=== PATIENT | male | born 1950 | race Caucasian/White ===

== ENCOUNTER → 2020-07-01 17:45 | Outpatient (BNVA) | payer MEDICARE, SELFPAY | PROVIDERS: Family Provider Family Medicine; Visit Provider Dermatology | DX: D48.9 Neoplasm of uncertain behavior, unspecified (principal) | CPT/HCPCS: 88304 ==

== ENCOUNTER → 2020-09-29 15:46 | Outpatient (BNVA) | payer MEDICARE, SELFPAY | PROVIDERS: PCP Family Medicine; Referring Provider Family Medicine; Visit Provider Urology | DX: N13.9 Obstructive and reflux uropathy, unspecified (principal); N40.1 Benign prostatic hyperplasia with lower urinary tract symptoms; R33.9 Retention of urine, unspecified | CPT/HCPCS: 81003 ==

== ENCOUNTER 2020-11-10 13:02 | Outpatient (CLI) | payer MEDICARE, SELFPAY ==
--- NOTE | 2020-11-10 12:45 | US_ITS ---
WS: [id number] ULTRASOUND BLADDER CLINICAL INFORMATION: URINARY RETENTION COMPARISON: None. FINDINGS: Urinary bladder: The urinary bladder is morphologically normal. No free fluid is seen in the pelvis. Bladder volume Prevoid bladder: 17.6 cm x 15.4 cm x 11.1 cm; estimated volume 1577 ml. Postvoid bladder: 15.6 cm x 16.0 cm x 11.8 cm; estimated volume 1535 ml. Enlarged nodular prostate measuring 4.7 x 3.4 x 4.5 cm US/US bladder [id number] IMPRESSION: 1. Significant Post void residual 1535 cc with little emptying. 2. Enlarged nodular prostate.
== END 2020-11-10 13:03 | disposition home or self-care (01) ==
LOC: US 13:05
PROVIDERS: PCP Family Medicine; Visit Provider Urology
DX: R33.9 Retention of urine, unspecified (principal); N40.0 Benign prostatic hyperplasia without lower urinary tract symptoms
CPT/HCPCS: 76857

== ENCOUNTER → 2021-08-09 08:57 | Outpatient (BNVA) | payer MEDICARE, SELFPAY | PROVIDERS: PCP Family Medicine; Visit Provider Urology | DX: R33.9 Retention of urine, unspecified (principal) | CPT/HCPCS: 81003 ==

== ENCOUNTER 2021-12-16 10:05 | Outpatient (CLI) | payer MEDICARE, SELFPAY ==
--- NOTE | 2021-12-16 10:33 | CT_ITS ---
WS: [id number] LDCT LUNG CANCER SCREENING TECHNIQUE: Noncontrast CT of the chest with coronal and sagittal reformatted images. CLINICAL INFORMATION: NICOTINE DEPENDENCE,CIGARETTES COMPARISON: None. DLP: 88.40 mGy.cm DIvol: Mean CTDIvol: 1.60 (mGy) All CT scans at [facility] use at least one of these dose optimization techniques: automat ed exposure control; mA and/or kV adjustment per patient size (includes targeted exams where dose is matched to clinical indication); or iterative reconstruction. FINDINGS: Moderate chronic emphysematous changes. No acute pulmonary infiltrates. No focal pneumonia or pleural fluid. Small amount of hazy atelectasis in the lingula. Normal thyroid. Normal caliber thoracic aorta. Calcified paratracheal and RIGHT hilar lymph nodes. Ga llbladder is contracted with dense cholelithiasis. This can be followed up with ultrasound. Splenic g ranulomas. Adrenal glands are normal. Indeterminate RIGHT upper pole lesion has a heterogeneous appea regine measuring 2.8 cm. Recommend further evaluation with contrast-enhanced CT abdomen pelvis. Renal neoplasm is not excluded. Additional partially visualized presumed renal cysts bilaterally Normal GE junction. No axillary lymphadenopathy. Normal thoracic spine. CT/CT lung screening [id number] IMPRESSION: 1. Cholelithiasis. RECOMMEND FURTHER EVALUATION WITH ULTRASOUND. 2. Heterogeneous RIGHT upper pole renal lesion measuring 2.8 cm nonspecific bu t renal neoplasm not excluded. RECOMMEND FURTHER EVALUATION WITH CONTRAST-ENHAN MARY CT ABDOMEN PELVIS. LUNG-RADS: 1S-Negative with Significant Findings FOLLOW UP: 12 Month: Continue annual screening with LDCT
== END 2021-12-16 10:06 | disposition home or self-care (01) ==
PROVIDERS: PCP Family Medicine; Visit Provider Physician Assistant
DX: Z12.2 Encounter for screening for malignant neoplasm of respiratory organs (principal); F17.210 Nicotine dependence, cigarettes, uncomplicated
CPT/HCPCS: 71271

== ENCOUNTER → 2022-02-01 09:21 | Outpatient (BNVA) | payer MEDICARE, SELFPAY | PROVIDERS: PCP Family Medicine; Visit Provider Urology | DX: N40.1 Benign prostatic hyperplasia with lower urinary tract symptoms (principal); R33.9 Retention of urine, unspecified | CPT/HCPCS: 81003; 99213 ==

== ENCOUNTER → 2023-02-02 09:52 | Outpatient (BNVA) | payer MEDICARE, SELFPAY | PROVIDERS: PCP Family Medicine; Visit Provider Urology | DX: R33.9 Retention of urine, unspecified (principal) | CPT/HCPCS: 81003; 99213 ==

== ENCOUNTER 2023-07-19 10:09 | Outpatient (CLI) | payer MEDICARE, SELFPAY ==
--- NOTE | 2023-07-19 10:15 | CT_ITS ---
WS: [id number] LDCT LUNG CANCER SCREENING TECHNIQUE: Noncontrast CT of the chest with coronal and sagittal reformatted images. CLINICAL INFORMATION: NICOTINE DEPENDENCE, CIGARETTES COMPARISON: CT 12/16/2021 DLP: 95.91 mGy.cm DIvol: Mean CTDIvol: 2.10 (mGy) All CT scans at [facility] use at least one of these dose optimization techniques: automat ed exposure control; mA and/or kV adjustment per patient size (includes targeted exams where dose is matched to clinical indication); or iterative reconstruction. FINDINGS: Moderate chronic emphysematous changes. No suspicious pulmonary parenchymal opacities. Normal caliber thoracic aorta. Aortic calcification. No mediastinal or hilar lymphadenopathy. Choleli thiasis. Splenic granulomas. No axillary lymphadenopathy. Partially visualized LEFT renal cyst. Lobul ated RIGHT upper pole renal lesion incompletely evaluated demonstrated to represent renal cyst on the prior ultrasound. Normal GE junction. Small RIGHT adrenal adenoma. IMPRESSION: CT/CT lung screening [id number] LUNG-RADS: 1-Negative FOLLOW UP: 12 Month: Continue annual screening with LDCT
== END 2023-07-19 10:10 | disposition home or self-care (01) ==
LOC: RAD 10:10
PROVIDERS: PCP Family Medicine; Visit Provider Family Medicine
DX: Z12.2 Encounter for screening for malignant neoplasm of respiratory organs (principal); F17.210 Nicotine dependence, cigarettes, uncomplicated
CPT/HCPCS: 71271

== ENCOUNTER → 2023-09-05 10:06 | Outpatient (BNVA) | payer MEDICARE, SELFPAY | PROVIDERS: PCP Family Medicine; Visit Provider Nurse Practitioner Family | DX: L57.8 Other skin changes due to chronic exposure to nonionizing radiation (principal); L81.4 Other melanin hyperpigmentation; R22.9 Localized swelling, mass and lump, unspecified; Z85.828 Personal history of other malignant neoplasm of skin | CPT/HCPCS: 99203 ==

== ENCOUNTER 2024-07-24 08:32 | Outpatient (CLI) | payer MEDICARE, SELFPAY ==
--- NOTE | 2024-07-24 08:38 | CT_ITS ---
WS: [id number] LDCT LUNG CANCER SCREENING TECHNIQUE: Noncontrast CT of the chest with coronal and sagittal reformatted images. CLINICAL INFORMATION: HISTORY OF TOBACCO USE COMPARISON: 2022 DLP: 96.47 mGy.cm DIvol: Mean CTDIvol: 2.00 (mGy) All CT scans at [facility] use at least one of these dose optimization techniques: automat ed exposure control; mA and/or kV adjustment per patient size (includes targeted exams where dose is matched to clinical indication); or iterative reconstruction. FINDINGS: Moderate chronic emphysematous changes. No new suspicious pulmonary parenchymal opacities. No mediastinal or hilar lymphadenopathy. Calcified mediastinal and RIGHT hilar lymph nodes. Coronary calcification. Normal thoracic aorta. Aortic calcification. Spleen granulomas. Small RIGHT adrenal ad enoma. LEFT renal cyst. Few calcified granulomas. CT/CT lung screening [id number] IMPRESSION: LUNG-RADS: 1-Negative FOLLOW UP: 12 Month: Continue annual screening with LDCT
== END 2024-07-24 08:33 | disposition home or self-care (01) ==
LOC: RAD 08:34
PROVIDERS: PCP Family Medicine; Visit Provider Family Medicine
DX: Z12.2 Encounter for screening for malignant neoplasm of respiratory organs (principal); Z87.891 Personal history of nicotine dependence; J43.9 Emphysema, unspecified; I25.84 Coronary atherosclerosis due to calcified coronary lesion; I70.0 Atherosclerosis of aorta; D73.89 Other diseases of spleen; D35.01 Benign neoplasm of right adrenal gland; N28.1 Cyst of kidney, acquired; N20.0 Calculus of kidney
CPT/HCPCS: 71271

== ENCOUNTER → 2025-01-22 11:08 | Outpatient (BNVA) | payer MEDICARE, SELFPAY | PROVIDERS: PCP Family Medicine; Visit Provider Dermatology | DX: C44.722 Squamous cell carcinoma of skin of right lower limb, including hip (principal); L28.1 Prurigo nodularis; D17.0 Benign lipomatous neoplasm of skin and subcutaneous tissue of head, face and neck; L72.0 Epidermal cyst; L82.1 Other seborrheic keratosis; D36.14 Benign neoplasm of peripheral nerves and autonomic nervous system of thorax; Z08 Encounter for follow-up examination after completed treatment for malignant neoplasm; Z85.828 Personal history of other malignant neoplasm of skin; D48.5 Neoplasm of uncertain behavior of skin | CPT/HCPCS: 11102; 99214 ==

== ENCOUNTER → 2025-03-04 15:57 | Outpatient (BNVA) | payer MEDICARE, SELFPAY | PROVIDERS: PCP Family Medicine; Visit Provider Dermatology | DX: L28.1 Prurigo nodularis (principal); D36.14 Benign neoplasm of peripheral nerves and autonomic nervous system of thorax; Z08 Encounter for follow-up examination after completed treatment for malignant neoplasm; Z85.828 Personal history of other malignant neoplasm of skin; D48.5 Neoplasm of uncertain behavior of skin | CPT/HCPCS: 11102; 99214 ==

== ENCOUNTER → 2025-04-09 09:55 | Outpatient (BNVA) | payer MEDICARE, SELFPAY | PROVIDERS: PCP Family Medicine; Visit Provider Dermatology | DX: L28.1 Prurigo nodularis (principal); Z08 Encounter for follow-up examination after completed treatment for malignant neoplasm; Z85.828 Personal history of other malignant neoplasm of skin; C44.622 Squamous cell carcinoma of skin of right upper limb, including shoulder | CPT/HCPCS: 11602; 12032; 99213 ==

== ENCOUNTER → 2025-06-02 11:51 | Outpatient (BNVA) | payer MEDICARE, SELFPAY | PROVIDERS: PCP Family Medicine; Visit Provider Dermatology | DX: L72.0 Epidermal cyst (principal); L82.1 Other seborrheic keratosis; L28.1 Prurigo nodularis; D36.14 Benign neoplasm of peripheral nerves and autonomic nervous system of thorax; Z08 Encounter for follow-up examination after completed treatment for malignant neoplasm; Z85.828 Personal history of other malignant neoplasm of skin; D48.5 Neoplasm of uncertain behavior of skin; L57.0 Actinic keratosis | CPT/HCPCS: 11102; 17000; 99214 ==

== ENCOUNTER 2025-07-25 11:23 | Outpatient (CLI) | payer MEDICARE, SELFPAY ==
--- NOTE | 2025-07-25 11:30 | CT_ITS ---
WS: [id number] LDCT LUNG CANCER SCREENING TECHNIQUE: Noncontrast CT of the chest with coronal and sagittal reformatted images. CLINICAL INFORMATION: NICOTINE DEPENDENCE, CIGARETTES COMPARISON: 2023 DLP: 87.27 mGy.cm DIvol: Mean CTDIvol: 1.80 (mGy) All CT scans at [facility] use at least one of these dose optimization techniques: automated exposure control; mA and/or kV adjustment per patient size (includes targeted exams where dose is matched to clinical indication); or iterative reconstruction. FINDINGS: Moderate chronic emphysematous changes. No new suspicious pulmonary parenchymal opacities. A few calcified granulomas. No mediastinal or hilar lymphadenopathy. Coronary calcification. Normal thoracic aorta. Aortic calcification. Splenic granulomas. Small RIGHT adrenal adenoma. LEFT renal cyst. Cholelithiasis. Fluid distended stomach. CT/CT lung screening [id number] IMPRESSION: LUNG-RADS: 2-Benign Appearance or Behavior FOLLOW UP: 12 Month: Continue annual screening with LDCT
== END 2025-07-25 11:24 | disposition home or self-care (01) ==
LOC: RAD 11:24
PROVIDERS: PCP Family Medicine; Visit Provider Family Medicine
DX: Z12.2 Encounter for screening for malignant neoplasm of respiratory organs (principal); F17.210 Nicotine dependence, cigarettes, uncomplicated; N28.1 Cyst of kidney, acquired; J43.8 Other emphysema; J84.10 Pulmonary fibrosis, unspecified; I25.84 Coronary atherosclerosis due to calcified coronary lesion; I70.0 Atherosclerosis of aorta; D73.9 Disease of spleen, unspecified; D35.01 Benign neoplasm of right adrenal gland; K80.20 Calculus of gallbladder without cholecystitis without obstruction; K31.89 Other diseases of stomach and duodenum
CPT/HCPCS: 71271

== ENCOUNTER 2025-08-26 11:47 | Outpatient (CLI) | payer MEDICARE, SELFPAY ==
--- NOTE | 2025-08-26 12:00 | USCV_ITS ---
Moody Cueva Age: 75 Gender: M : 1950 Exam Date: 08/26/2025 12:18 Ordering Phys: Valentin Jacobson MD Technologist: Exam Location: [facility] [place] Indication: cp sob BP: 120 / 75 HR: 78 Rhythm: Sinus Technical Quality: Adequate MEASUREMENTS (Male / Female) Normal Values 2D ECHO LV Diastolic Diameter PLAX 5.3 cm 4.2 - 5.9 / 3.9 - 5.3 cm IVS Diastolic Thickness 1.2 cm 0.6 - 1.0 / 0.6 - 0.9 cm IVS Systolic Thickness 2.0 cm LVPW Diastolic Thickness 1.1 cm 0.6 - 1.0 / 0.6 - 0.9 cm LVPW Systolic Thickness 2.0 cm LVOT Diameter 2.1 cm LV Ejection Fraction 2D Teich 40.0 % LV Ejection Fraction MOD 4C 53.7 % LV Ejection Fraction MOD 2C 49.7 % LV Ejection Fraction 2C AL 49.4 % LA Diameter 4.3 cm RA Systolic Volume 4C AL 32.3 ml RA Systolic Volume 4C MOD 31.5 ml LA Sys Volume AL 76.8 cm cubed LA Sys Volume Index AL 36.8 cm cubed/m squared Aorta at Sinotubular Diameter 3.3 cm IVC Diameter 1.9 cm M-MODE LA Ao Ratio MM 1.8 MV E Point Septal Separation 2.4 cm AV Cusp Separation MM 3.5 cm DOPPLER AV Peak Velocity 123.0 cm/s LVOT Peak Velocity 75.0 cm/s AV Area Cont Eq vti 2.7 cm squared AV Area Cont Eq pk 2.2 cm squared MV Peak Velocity 99.0 cm/s MV Area PHT 2.8 cm squared Mitral E to A Ratio 0.9 TV Peak Velocity 141.5 cm/s TR Peak Velocity 144.0 cm/s TR Peak Gradient 8.3 mmHg TV Peak E Velocity 90.0 cm/s PV Peak Velocity 114.0 cm/s FINDINGS Left Ventricle Normal left ventricular cavity size. Abnormal left ventricular systolic function with akinesis of the inferoseptal and inferior cardona. Mildly decreased left ventricular systolic function with ejection fraction of 40 to 45%. Indeterminate left ventricular diastolic function due to irregular heart rhythm and ectopic beats. Mild concentric left ventricular hypertrophy Right Ventricle Normal right ventricular size and systolic function Right Atrium Normal right atrial size Left Atrium Mildly enlarged left atrium IA Septum Normal appearance of the intraventricular septum Mitral Valve Normal mitral valve structure and function Aortic Valve Normal aortic valve structure and function Tricuspid Valve No tricuspid valve regurgitation. Unable to measure the pulmonary artery pressure due to absence of TR jet. Pulmonic Valve No pulmonic valve stenosis or regurgitation Pericardium No pericardial effusion Aorta Normal aortic to size IVC Normal IVC size CONCLUSIONS 1. Mildly reduced left ventricular systolic function with segmental wall motion abnormality with akinesis of the inferior septal and inferior cardona, EF 40 to 45%. 2. Mild concentric left ventricular hypertrophy 3. Normal right ventricular size and systolic function 4. No significant valvular abnormalities Kingsley Garcia MD, FACC (Electronically Signed) Final Date: 27 August 2025 20:22 S
== END 2025-08-26 11:48 | disposition home or self-care (01) ==
LOC: RAD 11:53
PROVIDERS: PCP Family Medicine; Visit Provider Family Medicine
DX: R06.09 Other forms of dyspnea (principal); I42.2 Other hypertrophic cardiomyopathy; I51.89 Other ill-defined heart diseases
CPT/HCPCS: 93306

== ENCOUNTER → 2025-09-01 08:58 | Outpatient (BNVA) | payer MEDICARE, SELFPAY | PROVIDERS: PCP Family Medicine; Visit Provider Dermatology | DX: L28.1 Prurigo nodularis (principal); D36.14 Benign neoplasm of peripheral nerves and autonomic nervous system of thorax; Z08 Encounter for follow-up examination after completed treatment for malignant neoplasm; Z85.828 Personal history of other malignant neoplasm of skin; D48.5 Neoplasm of uncertain behavior of skin | CPT/HCPCS: 11102; 17262; 99214 ==